=== PATIENT | male | born 1945 | race Caucasian/White ===

== ENCOUNTER 2021-04-07 10:34 | Observation (INO) ==
[2021-04-07] MEDS ORDERED: 0.9 % Sodium Chloride 1,000 ML IVC ONE (10:47)
[2021-04-07 11:06] LABS: Basophils # 0.1 K/mcL (0.0-0.2); Basophils % 2.1 %; Eosinophils # 0.3 K/mcL (0.0-0.6); Eosinophils % 6.4 %; Hematocrit 38.5 % (37.5-50.1); Hemoglobin 13.1 g/dL (12.9-16.9); Immature Granulocytes % 0.2 % (0-4); Lymphocytes # 2.1 K/mcL (0.6-4.6); Lymphocytes % 42.6 %; Mean Corpuscular Hemoglobin 30.9 pg (28.0-33.3); Mean Corpuscular Volume 90.8 fL (83.0-100.0); Mean Platelet Volume 9.6 fL (9.4-12.4); Monocytes # 0.5 K/mcL (0.0-1.3); Monocytes % 9.4 %; Neutrophils # 1.9 K/mcL (1.6-8.9); Platelet Count 183 K/mcL (140-400); Red Blood Count 4.24 M/mcL (4.19-5.50); Red Cell Distribution Width 13.5 % (11.5-14.5); Segmented Neutrophils % 39.3 %; White Blood Count 4.8 K/mcL (4.3-11.1)
[2021-04-07 11:13] LABS: Prothrombin Time 11.9 Seconds (9.4-12.1)
[2021-04-07 11:34] LABS: BUN/Creatinine Ratio 14 (6-26); Blood Urea Nitrogen 14 mg/dL (8-23); Calcium 8.9 mg/dL (8.6-10.3); Carbon Dioxide 25 mEq/L (23-29); Chloride 104 mEq/L (98-107); Glucose 143 mg/dL (70-105); Osmolality,Calculated 289 (280-300); Potassium 3.9 mEq/L (3.5-5.1); Sodium 138 mEq/L (136-145); Troponin I < 0.03 ng/mL (< 0.04); eGFR For African Americans > 60 (> 60); eGFR For Non-African Americans > 60 (> 60)
[2021-04-07] MEDS ORDERED: Ondansetron ODT 4 MG TAB.RAPDIS SL PRN (12:55)
[2021-04-07] MEDS ORDERED: MOM Conc 10 ML UD.LIQ PO PRN (12:55)
[2021-04-07] MEDS ORDERED: Mag Hydrox/Al Hydrox/Simeth 30 ML UDC PO PRN (12:55)
[2021-04-07] MEDS ORDERED: Naloxone 0.4 MG/ML INJ IVP PRN (12:55)
[2021-04-07] MEDS ORDERED: Melatonin 3 MG TABLET PO PRN (12:55)
[2021-04-07] MEDS ORDERED: Perflutren Lipid Microsphere 1.3 ML in 0.9 % Sodium Chloride 8.7 ML IVP PRN (13:01)
[2021-04-08] MEDS ORDERED: *HR* Enoxaparin 40 MG/0.4 ML SYRINGE SQ SCH (06:00)
[2021-04-08 06:44] LABS: Hematocrit 38.4 % (37.5-50.1); Hemoglobin 12.6 g/dL (12.9-16.9); Mean Corpuscular HGB Conc 32.8 g/dL (31.6-35.5); Mean Corpuscular Hemoglobin 29.9 pg (28.0-33.3); Mean Platelet Volume 9.6 fL (9.4-12.4); Platelet Count 157 K/mcL (140-400); Red Blood Count 4.22 M/mcL (4.19-5.50); Red Cell Distribution Width 13.2 % (11.5-14.5); White Blood Count 5.5 K/mcL (4.3-11.1)
[2021-04-08 07:13] LABS: Alanine Aminotransferase 25 Units/L (7-52); Albumin 3.7 g/dL (3.5-5.7); Albumin/Globulin Ratio 1.5 (1.1-2.2); Alkaline Phosphatase 49 Units/L (34-104); Aspartate Amino Transferase 27 Units/L (13-39); BUN/Creatinine Ratio 18 (6-26); Blood Urea Nitrogen 14 mg/dL (8-23); Calcium 8.8 mg/dL (8.6-10.3); Carbon Dioxide 24 mEq/L (23-29); Chloride 103 mEq/L (98-107); Globulin 2.4 g/dL (2.4-3.5); Glucose 116 mg/dL (70-105); Osmolality,Calculated 277 (280-300); Potassium 3.7 mEq/L (3.5-5.1); Sodium 133 mEq/L (136-145); Total Protein 6.1 g/dL (6.4-8.9); eGFR For African Americans > 60 (> 60); eGFR For Non-African Americans > 60 (> 60)
[2021-04-08 10:32] VITALS: BP 142/94; PULSE 62; TEMP 97.8; O2SAT 96
== END 2021-04-08 16:36 | disposition left against medical advice (07) ==
LOC: CDU 10:34 → EMEROOARM 10:34 → SUATTDRO 12:24 → CDU 13:14
PROVIDERS: ADMIT Internal Medicine; ATTEND Internal Medicine

== ENCOUNTER 2022-05-13 20:21 | Inpatient (IN) ==
[2022-05-13 21:03] LABS: Basophils # 0.1 K/mcL (0.0-0.2); Basophils % 0.9 %; Eosinophils # 0.2 K/mcL (0.0-0.6); Eosinophils % 3.4 %; Hematocrit 42.2 % (37.5-50.1); Hemoglobin 14.5 g/dL (12.9-16.9); Immature Granulocytes % 0.3 % (0-4); Lymphocytes # 2.2 K/mcL (0.6-4.6); Lymphocytes % 33.6 %; Mean Corpuscular HGB Conc 34.4 g/dL (31.6-35.5); Mean Corpuscular Hemoglobin 30.9 pg (28.0-33.3); Mean Corpuscular Volume 89.8 fL (83.0-100.0); Mean Platelet Volume 9.2 fL (9.4-12.4); Monocytes # 0.5 K/mcL (0.0-1.3); Monocytes % 8.1 %; Neutrophils # 3.5 K/mcL (1.6-8.9); Platelet Count 166 K/mcL (140-400); Red Cell Distribution Width 12.7 % (11.5-14.5); Segmented Neutrophils % 53.7 %; White Blood Count 6.5 K/mcL (4.3-11.1)
[2022-05-13 21:10] LABS: Prothrombin Time 11.5 Seconds (9.4-12.1)
[2022-05-13 21:13] LABS: Activated Partial Thrombo Time 32.6 Seconds (26.0-36.0)
[2022-05-13 21:22] LABS: Alanine Aminotransferase 29 Units/L (7-52); Albumin 4.4 g/dL (3.5-5.7); Albumin/Globulin Ratio 1.6 (1.1-2.2); Alkaline Phosphatase 58 Units/L (34-104); Aspartate Amino Transferase 28 Units/L (13-39); BUN/Creatinine Ratio 15 (6-26); Bilirubin,Total 0.5 mg/dL (0.3-1.0); Blood Urea Nitrogen 15 mg/dL (8-23); Calcium 9.1 mg/dL (8.6-10.3); Carbon Dioxide 25 mEq/L (23-29); Chloride 103 mEq/L (98-107); Ethanol 310 mg/dL (Less than 10); Globulin 2.7 g/dL (2.4-3.5); Glucose 107 mg/dL (70-105); Osmolality,Calculated 289 (280-300); Potassium 3.9 mEq/L (3.5-5.1); Sodium 139 mEq/L (136-145); Total Protein 7.1 g/dL (6.4-8.9)
[2022-05-13] MEDS ORDERED: Iopamidol - 370 500 ML MLS IVP ONE (21:27)
[2022-05-13 22:32] LABS: Troponin I < 0.03 ng/mL (< 0.04)
[2022-05-13] MEDS ORDERED: Melatonin 3 MG TABLET PO PRN (23:45)
[2022-05-13] MEDS ORDERED: Ondansetron 4 MG/2 ML VIAL IVP PRN (23:45)
[2022-05-13] MEDS ORDERED: Naloxone 0.4 MG/ML INJ IVP PRN (23:45)
[2022-05-13] MEDS ORDERED: Acetaminophen 325 MG TABLET PO PRN (23:45)
[2022-05-14] MEDS: 0.9 % Sodium Chloride 1,000 ML IVC SCH ×2 (01:00→02:07)
[2022-05-14] MEDS: Aspirin Enteric Coated 325 MG Tablet PO SCH ×2 (01:17→08:39)
[2022-05-14 03:47] LABS: Hematocrit 41.3 % (37.5-50.1); Hemoglobin 14.3 g/dL (12.9-16.9); Mean Corpuscular HGB Conc 34.6 g/dL (31.6-35.5); Mean Corpuscular Volume 89.4 fL (83.0-100.0); Mean Platelet Volume 9.9 fL (9.4-12.4); Platelet Count 176 K/mcL (140-400); Red Blood Count 4.62 M/mcL (4.19-5.50)
[2022-05-14 04:16] LABS: Calcium 8.7 mg/dL (8.6-10.3); Chol/HDL Ratio 3.1 (0-4.9); Potassium 4.1 mEq/L (3.5-5.1)
[2022-05-14 04:18] LABS: Cholesterol 165 mg/dL (< 200); HDL Cholesterol 55 mg/dL (40-59); LDL Cholesterol,Calculated 87 mg/dL (< 100); Thyroid Stimulating Hormone 1.032 mcIU/mL (0.340-5.600); Triglycerides 114 mg/dL (< 150); Troponin I < 0.03 ng/mL (< 0.04)
[2022-05-14] MEDS ORDERED: *HR* LORazepam 1 MG TABLET PO PRN (05:17)
[2022-05-14 06:40] LABS: Estimated Average Glucose 117 mg/dl; Hemoglobin A1C 5.7 %
[2022-05-14 09:02] LABS: Bilirubin,Urine Negative (Negative); Blood,Urine Negative (Negative); Clarity,Urine Clear (Clear); Color,Urine Light-Yellow (Yellow); Glucose,Urine (UA) Normal (Normal); Ketones,Urine 10 mg/dL (Negative); Leukocyte Esterase,Urine Negative (Negative); Nitrite,Urine Negative (Negative); Protein,Urine Negative (Neg-Trace); Urobilinogen,Urine Normal (Normal)
[2022-05-14 09:12] LABS: Amphetamine Screen,Urine Negative ng/mL (Cutoff=1000); Barbiturate Screen,Urine Negative ng/mL (Cutoff=200); Benzodiazepines Screen,Urine Negative ng/mL (Cutoff=200); Cannabinoid Screen,Urine Negative ng/mL (Cutoff = 50); Cocaine Screen,Urine Negative ng/mL (Cutoff= 300); Opiate Screen,Urine Negative ng/mL (Cutoff=300); Phencyclidine Screen,Urine Negative ng/mL (Cutoff=25)
[2022-05-15] MEDS ORDERED: Regadenoson 0.4 MG/5 ML SYRINGE IVP ONE (06:39)
[2022-05-15] MEDS ORDERED: amLODIPine 5 MG TABLET PO SCH (09:00)
[2022-05-15] MEDS: Aspirin Enteric Coated 325 MG Tablet PO SCH (09:58)
[2022-05-15 11:15] VITALS: BP 147/84; PULSE 62; TEMP 98.2; O2SAT 95
== END 2022-05-15 13:04 | disposition home or self-care (01) | DRG 897 ==
LOC: EMEROOARM 20:21 → 3BNU 20:21 → SUATTDRO 22:58 → 3BNU 23:20
PROVIDERS: ADMIT Internal Medicine; ATTEND Nurse Practitioner